=== PATIENT | male | born 1985 | race Caucasian/White ===

== ENCOUNTER 2019-07-05 02:20 | Emergency (ER) | payer OTHER ==
[~2019-07-05] VITALS: Ht 627.4 cm; Wt 106.6 kg
[~2019-07-05 02:20] MED LIST: ALPR.25 PO
== END 2019-07-05 04:20 | disposition home or self-care (01) ==
LOC: ER 02:20
DX: R13.10 Dysphagia, unspecified (principal); R09.89 Other specified symptoms and signs involving the circulatory and respiratory systems; F17.290 Nicotine dependence, other tobacco product, uncomplicated
CPT/HCPCS: 71250; 99283-25